=== PATIENT | male | born 1970 | race African-American/Black ===

== ENCOUNTER 2017-01-18 12:43 | Emergency (ER) | payer MEDICAID ==
[~2017-01-18] VITALS: Ht 177.8 cm; Wt 82.0 kg
[2017-01-18] MEDS ORDERED: RISP4 PO (12:54)
[2017-01-18] MEDS ORDERED: LITHTAB PO (12:54)
[2017-01-18] MEDS ORDERED: KETOROLAC 60MG/2ML VIAL IM ONE (13:30)
[2017-01-18] MEDS ORDERED: BACITRACIN ZINC OINT UDPKT TOP ONE (14:00)
[2017-01-18 14:01] VITALS: BP 143/108
== END 2017-01-18 14:40 | disposition home or self-care (01) ==
LOC: ER 12:44
DX: S00.11XA Contusion of right eyelid and periocular area, initial encounter (principal); F20.9 Schizophrenia, unspecified; F17.210 Nicotine dependence, cigarettes, uncomplicated; Z79.899 Other long term (current) drug therapy; W21.09XA Struck by other hit or thrown ball, initial encounter; Y93.89 Activity, other specified; Y92.89 Other specified places as the place of occurrence of the external cause; Y99.8 Other external cause status
CPT/HCPCS: 96372; 99283; J1885; Z7610